=== PATIENT | female | born 1955 | race Caucasian/White ===

== ENCOUNTER 2017-03-13 08:26 | Emergency (ER) | payer OTHER ==
[~2017-03-13] VITALS: Ht 157.5 cm; Wt 86.3 kg
[2017-03-13 08:29] VITALS: BP 142/84; PULSE 56; RESP 17; O2SAT 100
[2017-03-13] MEDS ORDERED: 0.9% Sodium Chloride 500 ML IV ONE (09:03)
[2017-03-13] MEDS ORDERED: Ondansetron 2 mg/mL 2 mL Inj IVPUSH PRN ×2 (09:05→09:40)
[2017-03-13 09:22] LABS: BASOPHILS % (AUTO) 0.1 % (0-3); EOSINOPHILS % (AUTO) 0.4 % (0-5); MONOCYTES % (AUTO) 2.7 % (4-12); Mean Corpuscular Hemoglobin 27.2 pg (27.0-35.0); Mean Corpuscular Volume 81.4 fL (81-100); Platelet Count 216 bil/L (150-400)
--- NOTE | 2017-03-13 09:27 | ED.REPORT ---
HPI-Abd Pain F 40 and Over Date of Service Mar 13, 2017 ED Provider: Segundo Bryan MD Pt is a 62 year old female presenting to the ED complaining of abdominal and back pain onset last night. She states that she felt fine yesterday until she went to bed, then she couldn't find a comfortable position and had intense diffuse back pain. Her reports that they had chicken and beef tacos for dinner last night at 1730. Associated symptoms include vomiting throughout the night, fatigue, pain with inspiration, and increased urinary volume. Denies blood or green in the vomit, diarrhea, fever, constipation, dysuria, cough, congestion, or any other symptoms at this time. She denies any recent sick contacts. Nursing Notes Stated Complaint: POSSIBLE FOOD POISONING Chief Complaint: Female Abdominal Pain Nursing Notes Reviewed: Yes Allergies: Coded Allergies: No Known Allergies (Unverified , 03/13/17) Scheduled PRN Hydrocodone-Acetaminophen 5-325 mg (Hydrocodone-Acetaminophen 5-325 mg) 1 Each Tablet 1 TABLET PO Q4H PRN PRN For Pain Ondansetron ODT (Zofran ODT) 4 Mg Tablet 4 MG PO Q4H PRN PRN For Nausea General Time Seen by MD: 08:50 Chief Complaint Abdominal pain Hx Obtained From: Patient Arrived By: Walk-in Sudden in Onset?: Yes Onset Occurred: Yesterday Symptom Duration: Since onset Location: : Back: Diffuse: RUQ Quality: Painful Severity: Current: Severe Severity: Maximum: Severe Recent Healthcare: No recent doctor visit, No recent hospitalization Similar Sx Previous: No Past Medical History Past Medical History healthy Past Surgical History denies Denies: Appendectomy, , Cholecystectomy Smoking History Never Smoker Ambulatory Status Independent Review of Systems Constitutional: Reports: Fatigue, Denies: Fever Respiratory: Denies: Non-productive cough GI: Reports: Abdominal pain, Vomiting, Denies: Constipation, Diarrhea Female: Reports: Urination increased, Denies: Dysuria Musculoskeletal: Reports: Back pain Complete sys rev & neg: except as marked. Ears / Nose / Throat: Denies: Nasal congestion Physical Exam Vital Signs Vital Signs (First) Date Time Temp Pulse Resp B/P Pulse Ox O2 Delivery O2 Flow Rate FiO2 03/13/17 08:29 36.4 56 17 142/84 100 Room Air Initial VS: Reviewed Head / Eyes: Atraumatic, Normocephalic, PERRL Extremities: Vascular intact, Neuro intact, No swelling, No tenderness Skin: Warm, Dry, No cyanosis Neurologic: Alert, Oriented, Nonfocal Psychiatric: Mood/affect normal, Behavior normal, Normal thought content General/Constitutional: Awake, Alert, No acute distress, Well appearing Respiratory / Chest: Breath sounds NL, Breath sounds = bilat, No respiratory distress, No rales, No rhonchi, No wheezing, No stridor Cardiovascular: Heart rate NL, Regular rhythm, Heart sounds NL, No gallop, No murmurs, No rubs Abdomen: No guarding, No rebound Tenderness/Guarding/Rebound: Positive: Tender RUQ... (Moderate) Back: Atraumatic, No CVA tenderness Lower Extremity / Pelvis / MS: No deformity, Neurologic intact, Vascular intact , No edema Interpretation & Diagnostics Lab Results Interpretation Result Diagram: 03/13/17 0905 03/13/17 0905 Test 03/13/17 09:05 White Blood Count 10.4th/mm3 (3.8-10.1) Red Blood Count 5.37mil/mm3 (3.90-5.20) Hemoglobin 14.6g/dL (12.0-15.6) Hematocrit 43.7% (35.0-46.0) Mean Corpuscular Volume 81.4fL (81-100) Mean Corpuscular Hemoglobin 27.2pg (27.0-35.0) Mean Corpuscular Hemoglobin Concent 33.4% (32.0-37.0) Red Cell Distribution Width 13.6% (12.3-15.4) Platelet Count 216bil/L (150-400) Neutrophils (%) (Auto) 85.0% (40-74) Lymphocytes (%) (Auto) 11.6% (14-46) Monocytes (%) (Auto) 2.7% (4-12) Eosinophils (%) (Auto) 0.4% (0-5) Basophils (%) (Auto) 0.1% (0-3) Sodium Level 138mEq/L (134-144) Potassium Level 4.2mEq/L (3.5-5.2) Chloride Level 100mEq/L (97-108) Carbon Dioxide Level 20mmol/L (18-29) Blood Urea Nitrogen 15mg/dL (8-27) Creatinine 0.90mg/dL (0.57-1.00) Estimat Glomerular Filtration Rate 91mL/min (>59) Glucose Level 139mg/dL (60-99) Calcium Level 9.7mg/dL (8.5-10.1) Magnesium Level 1.8mg/dL (1.6-2.6) Total Bilirubin 0.5mg/dL (0.0-1.2) Aspartate Amino Transf (AST/SGOT) 22U/L (0-50) Alanine Aminotransferase (ALT/SGPT) 23U/L (0-32) Alkaline Phosphatase 78U/L (25-165) Total Protein 7.1g/dL (6.4-8.4) Albumin 4.3g/dL (3.4-5.0) Lipase 40U/L (13-60) Hold Dawkins Top Tube Received (Received) US Abdominal Aorta IMPRESSION: 1. Echogenic changes consistent with gallstones lodged in the neck of the gallbladder with tenderness over the gallbladder bed. Possible early acute cholecystitis. No pericholecystic fluid or wall thickening. 2. Diffuse infiltrative changes in the liver most likely fatty infiltration. Dictated by: Sotero Francis M.D. on 03/13/2017 at 12:35 Exam Performed by: Radiologist Exam Interpreted by: Radiologist Re-Eval/Medical Decision Med Decision/Clinical Course 62-year-old female with vomiting and right upper quadrant pain since last night after eating hamburger. Vital signs are stable. Abdomen stable. Right upper quadrant ultrasound shows cholelithiasis no cholecystitis. Common bile duct is within normal limits. No LFT elevation. No leukocytosis. Patient felt much better now be discharged home with pain medications and plans to follow up with general surgery. Return precautions given if any new or worsening abdominal pain nausea vomiting or any other new or worsening symptoms. Re-Evaluation/Progress : Time of Eval: 10:48 Patient Status: Condition improved Re-Evaluation/Progress Note: Discussed ultrasound results. Repeat abdominal exam: non tender. Discussed plan for discharge. Pt understands and agrees. Counseled Regarding: Diagnosis, Lab results, Need for follow-up, When/why to return to ED Discharge & Departure Primary Impression: Cholelithiasis Cholecystitis presence: without cholecystitis Biliary obstruction: without biliary obstruction Disposition: Home Discharge Condition All VS Reviewed: Yes Condition: Improved Patient Instructions: Gallstones (ED) Additional Instructions: Your ultrasound showed cholelithiasis which is a gall stone. Your gallbladder is not currently infected, but you will need to follow up with a surgeon to have your gallbladder removed. Follow up with your primary care doctor on Wednesday. Stay away from fatty foods which will exacerbate your pain. Stick to carbs, fruits and veggies. Return to the ER if you develop any new or worsening symptoms such as fever, abdominal pain or vomiting. Do not drive or drink alcohol while taking the pain medication. Referrals: Torres Pang MD (PCP) Iftikhar Attestation Portions of this note were transcribed by Beatriz Manuel. I, Dr. Bryan personally performed the history, physical exam and medical decision-making; I reviewed and confirmed the accuracy of the information in the transcribed note. Signed by: Iftikhar Hunt, 03/13/2017 at 1218. copies to: Torres Pang MD, Ben M MD Mar 13, 2017 09:27 BEATRIZ MANUEL Mar 13, 2017 09:34
[2017-03-13] MEDS ORDERED: 0.9% Sodium Chloride 1,000 ML IV ONE (09:36)
[2017-03-13 09:56] LABS: Magnesium 1.8 mg/dL (1.6-2.6)
[2017-03-13] MEDS ORDERED: ONDA4TAB9 PO (10:59)
[2017-03-13] MEDS ORDERED: HYDR-4003 PO (10:59)
[2017-03-13 11:11] VITALS: BP 116/70; PULSE 50; RESP 15; O2SAT 98
--- NOTE | 2017-03-13 12:39 | DRSVH ---
PROCEDURE: US ABDOMEN, LIMITED ([id number]) INDICATIONS: RUQ TECHNIQUE: Real-time focused scanning was performed of the abdomen, with image documentation. COMPARISON: None. FINDINGS: Liver is normal in size at 18 cm but there is diffuse echogenicity consistent with an infil trative process, fatty infiltration. There is relatively gallstones lodged in the neck of the gallbladder. Wall thickness is normal at 2.7 mm. There is tenderness over the gallbladder. Common bile duct measures 7 mm, upper normal. No gross abnormality of the pancreas is seen. Right kidney is grossly normal at 12 cm in length. Left kidney was not evaluated. Size of the proxima l mid and distal aorta is within normal limits. IMPRESSION: 1. Echogenic changes consistent with gallstones lodged in the neck of the gallbladder with tenderness over the gallbladder bed. Possible early acute cholecystitis. No pericholecystic fluid or wall thick ening. 2. Diffuse infiltrative changes in the liver most likely fatty infiltration. Dictated by: Sotero Francis M.D. on 03/13/2017 at 12:35 Approved by: Sotero Francis M.D. on 03/13/2017 at 12:37
== END 2017-03-13 11:05 | disposition home or self-care (01) ==
LOC: SED 08:26
DX: K80.20 Calculus of gallbladder without cholecystitis without obstruction (principal); R53.83 Other fatigue
CPT/HCPCS: 36415; 76705; 80053; 83690; 83735; 85025; 96361; 96374; 96375; 99285; J2270; J2405; J7030

== ENCOUNTER 2017-03-15 19:44 | Inpatient (IN) | payer OTHER ==
[~2017-03-15] VITALS: Ht 157.5 cm; Wt 89.6 kg
[~2017-03-15 19:44] MED LIST: HYDR-4003 PO; ONDA4TAB9 PO
[2017-03-15 19:47] VITALS: BP 151/86; PULSE 51; RESP 20; O2SAT 99
[2017-03-15 20:45] LABS: BASOPHILS % (AUTO) 0.1 % (0-3); EOSINOPHILS % (AUTO) 1.8 % (0-5); MONOCYTES % (AUTO) 6.4 % (4-12); Mean Corpuscular Hemoglobin 27.6 pg (27.0-35.0); Mean Corpuscular Volume 83.5 fL (81-100); NEUTROPHILS % (AUTO) 84.6 % (40-74); Platelet Count 190 bil/L (150-400)
--- NOTE | 2017-03-15 22:17 | ED.REPORT ---
HPI-Abd Pain F 40 and Over Date of Service Mar 15, 2017 ED Provider: Yuan Naqvi DO Pt is a 62 year old female with a history of HTN who presents to the ED complaining of worsening abdominal pain. She c/o associated pain radiating to her back, nausea, and "belching." She denies vomiting. Per the pt was diagnosed with cholelithiasis 2 days ago, and she is schedule for cholecystectomy for 03/18/17 at [facility]. The pt took 3 ibuprofen, hydrocodone, and anti-nausea medication throughout the day prior to arrival without relief. Nursing Notes Stated Complaint: PAIN W/ GALLSTONES Chief Complaint: Female Abdominal Pain Nursing Notes Reviewed: Yes Allergies: Coded Allergies: latex (Verified Allergy, Mild, 03/15/17) Scheduled Propranolol HCl (Propranolol HCl) 40 Mg Tablet 40 MG PO BID Scheduled PRN Frovatriptan Succinate (Frova) 2.5 Mg Tablet 2.5 MG PO DIRECTED PRN PRN For Headache Hydrocodone-Acetaminophen 5-325 mg (Hydrocodone-Acetaminophen 5-325 mg) 1 Each Tablet 1 TABLET PO Q4H PRN PRN For Pain Ibuprofen (Ibuprofen) 200 Mg Capsule 200 MG PO DIRECTED PRN PRN For Pain Ondansetron ODT (Zofran ODT) 4 Mg Tablet 4 MG PO Q4H PRN PRN For Nausea General Time Seen by MD: 22:17 Chief Complaint Abdominal pain Hx Obtained From: Patient Arrived By: Walk-in Sudden in Onset?: No Onset Occurred: 5 - 8 hours ago Symptom Duration: Since onset Location: : RLQ Quality: Painful Radiation: : Back Severity: Current: Moderate Severity: Maximum: Moderate Recent Healthcare: Recent doctor visit Similar Sx Previous: No Past Medical History Past Medical History Gallstones Reports: Hypertension Past Surgical History Tubal ligation Smoking History Never Smoker Social History Alcohol Use: In recovery Drug Use: Denies drug use Other Social History: Good social support Ambulatory Status Independent Review of Systems GI: Reports: Abdominal pain, Nausea, Denies: Vomiting Musculoskeletal: Reports: Back pain Complete sys rev & neg: except as marked. Physical Exam Vital Signs Vital Signs (First) Date Time Temp Pulse Resp B/P Pulse Ox O2 Delivery O2 Flow Rate FiO2 03/15/17 19:47 36.5 51 20 151/86 99 Room Air Initial VS: Reviewed Head / Eyes: Atraumatic, Normocephalic Neck: Supple, Full range of motion Extremities: Vascular intact, Neuro intact Skin: Warm, Dry, No cyanosis Neurologic: Alert, Oriented, Nonfocal Psychiatric: Mood/affect normal, Behavior normal General/Constitutional: Awake, Alert, Cooperative Respiratory / Chest: Atraumatic, Breath sounds NL, Breath sounds = bilat Cardiovascular: Heart rate NL, Regular rhythm, Heart sounds NL Abdomen: Atraumatic, Soft Tenderness/Guarding/Rebound: Positive: Tender RUQ... (Mild) Back: Atraumatic, Full range of motion Skin: Atraumatic, Color NL (non-jaundiced), Warm, Dry, Intact Interpretation & Diagnostics Lab Results Interpretation Result Diagram: 03/15/17203603/15/172036 Test 03/15/17 20:35 03/15/17 20:37 03/15/17 22:13 03/15/17 23:00 Acetaminophen Level < 15.0ug/mL Rx (10-25) White Blood Count 7.7th/mm3 (3.8-10.1) Red Blood Count 5.04mil/mm3 (3.90-5.20) Hemoglobin 13.9g/dL (12.0-15.6) Hematocrit 42.1% (35.0-46.0) Mean Corpuscular Volume 83.5fL (81-100) Mean Corpuscular Hemoglobin 27.6pg (27.0-35.0) Mean Corpuscular Hemoglobin Concent 33.0% (32.0-37.0) Red Cell Distribution Width 13.4% (12.3-15.4) Platelet Count 190bil/L (150-400) Neutrophils (%) (Auto) 84.6% (40-74) Lymphocytes (%) (Auto) 7.0% (14-46) Monocytes (%) (Auto) 6.4% (4-12) Eosinophils (%) (Auto) 1.8% (0-5) Basophils (%) (Auto) 0.1% (0-3) Sodium Level 136mEq/L (134-144) Potassium Level 4.3mEq/L (3.5-5.2) Chloride Level 98mEq/L (97-108) Carbon Dioxide Level 25mmol/L (18-29) Blood Urea Nitrogen 6mg/dL (8-27) Creatinine 0.77mg/dL (0.57-1.00) Estimat Glomerular Filtration Rate 108mL/min (>59) Glucose Level 125mg/dL (60-99) Calcium Level 9.4mg/dL (8.5-10.1) Magnesium Level 2.0mg/dL (1.6-2.6) Total Bilirubin 2.5mg/dL (0.0-1.2) Aspartate Amino Transf (AST/SGOT) 1218U/L (0-50) Alanine Aminotransferase (ALT/SGPT) 936U/L (0-32) Alkaline Phosphatase 159U/L (25-165) Total Protein 7.1g/dL (6.4-8.4) Albumin 3.8g/dL (3.4-5.0) Lipase 26U/L (13-60) Hold Dawkins Top Tube Received (Received) Urine Color Yellow (YELLOW) Urine Appearance Clear (CLEAR,HAZY) Urine pH 6.0 (5.0-8.0) Urine Specific [place] 1.004 (1.003-1.035) Urine Protein Negativemg/dL (NEG,TRACE) Urine Glucose (UA) Negativemg/dL (NEGATIVE) Urine Ketones Negativemg/dL (NEGATIVE) Urine Occult Blood Negative (NEGATIVE) Urine Nitrite Negative (NEGATIVE) Urine Bilirubin Negative (NEGATIVE) Urine Urobilinogen Normalmg/dL (NORMAL) Urine Leukocyte Esterase Small (NEGATIVE) Urine RBC 0-2/hpf (0-2) Urine WBC 6-10/hpf (0-5) Urine Epithelial Cells Occasional/hpf (NONE-MOD) Urine Crystals None seen (NONE SEEN) Urine Bacteria Few/hpf (NONE-FEW) Urine Hyaline Casts None/lpf (NONE) Urine Granular Casts None seen (NONE SEEN) Urine Waxy Casts None seen (NONE SEEN) Urine Red Blood Cell Casts None seen (NONE SEEN) Urine White Blood Cell Casts None seen (NONE SEEN) Urine Mucus None seen (None Seen) Urine Trichomonas None seen (NONE SEEN) Urine Yeast None (NONE SEEN) Urinalysis Comment None Urine Culture Reflexed Indicated Hold Urine Received (Received) Hold Purple Top Tube Received (Received) Prothrombin Time 10.0sec (8.1-12.5) Prothromb Time International Ratio 0.94ratio Hold Blue Top Tube Received (Received) Hold [place] Top Tube Received (Received) Re-Eval/Medical Decision Med Decision/Clinical Course Patient having ongoing pain with some tenderness. Laboratory work shows an obstructive hepatitis. She most likely has acute cholecystitis will need to have her gallbladder removed. I consulted with our general surgeon who concurs. She will be admitted to his service. Source of Hx: Old records Re-Evaluation/Progress : Time of Eval: 22:32 Re-Evaluation/Progress Note: Pt rechecked. Informed pt of plan for admission. Pt understands and agrees with plan for admission. All questions addressed. Consultation : Referral / Consult Name: Nick Jerry MD Call Returned at: 22:32 Counseled Regarding: Diagnosis, Lab results, Need for follow-up, When/why to return to ED Discharge & Departure Primary Impression: Acute cholecystitis Additional Impression: Obstructive cholestatic liver disease Disposition: ADMITTED TO HOSPITAL Discharge Condition All VS Reviewed: Yes Condition: Stable Referrals: Torres Pang MD (PCP) Scribe Attestation Portions of this note were transcribed by Ayala Carballo. I, Dr. Naqvi personally performed the history, physical exam and medical decision-making; I reviewed and confirmed the accuracy of the information in the transcribed note. Signed by : Iftikhar Traore, 03/15/17 and 23:40. copies to: Torres Pang MD, Todd P DO Mar 15, 2017 22:17 Ayala Willis Mar 15, 2017 22:26
[2017-03-15] MEDS ORDERED: 0.9% Sodium Chloride 1,000 ML IV ONE (22:25)
[2017-03-15] MEDS ORDERED: Ondansetron 2 mg/mL 2 mL Inj IVPUSH PRN ×2 (22:25→23:30)
[2017-03-15] MEDS ORDERED: HYDROmorphone 0.5 mg/0.5 mL iSecure Syringe IVPUSH PRN ×2 (22:25→23:30)
[2017-03-15] MEDS ORDERED: Piperacillin-Tazo 3.375 Gm Inj 3.375 GM in Dextrose 5% Minibag Plus 50 ML IV ONE (22:35)
[2017-03-15] MEDS ORDERED: Alum-Mag Hydrox-Simeth 30 mL Suspension PO PRN (23:30)
[2017-03-15 23:33] VITALS: BP 133/63; PULSE 51; RESP 18; O2SAT 97
[2017-03-15 23:43] LABS: INR 0.94 ratio
[2017-03-16] VITALS (10 sets, daily range): BP systolic 115–147; BP diastolic 55–81; PULSE 50–72; RESP 10–18; O2SAT 94–99
[2017-03-16 00:13] LABS: APPEARANCE,URINE CLEAR (CLEAR,HAZY); COLOR,URINE YELLOW (YELLOW); OCCULT BLOOD,URINE NEGATIVE (NEGATIVE); UROBILINOGEN,URINE NORMAL (NORMAL)
[2017-03-16] MEDS ORDERED: Piperacillin-Tazo 3.375 Gm Inj 3.375 GM in Dextrose 5% Minibag Plus 50 ML IV SCH ×2 (00:30→07:30)
[2017-03-16] MEDS ORDERED: PROP40TA5 PO (00:46)
[2017-03-16] MEDS ORDERED: FROV2.5T3 PO (00:46)
[2017-03-16] MEDS ORDERED: IBUP200C PO (00:46)
[2017-03-16] MEDS: Lactated Ringer's 1,000 ML IV SCH ×3 (01:12→16:41)
[2017-03-16] MEDS: Ondansetron 2 mg/mL 2 mL Inj IVPUSH PRN ×2 (02:44→08:49)
--- NOTE | 2017-03-16 04:03 | NUR ---
Admission Pt admitted to [facility] rm 1005 at 2345 from the ED. Pt here with cholecystitis. Pt is A/O,making needs known. C/O pain at 1/10 due to just receiving dilaudid in the ED. Pt states prior to that her pain was an 8/10. Pt is CPR. Able to transfer from [facility] and use BR then into bed with steady gait. Oriented PT to room, call light and TV controls. IV in right AC asymptomatic, started IV fluids. Pt is NPO for surgery in AM. Nausea being controlled with zofran. Care continues
[2017-03-16] MEDS ORDERED: CeFAZolin Inj 2 GM in IV Premix 1 EACH IV ONE ×2 (08:45→09:04)
--- NOTE | 2017-03-16 09:03 | DRSVH ---
PROCEDURE: US ABDOMEN INDICATIONS: evaluate GB TECHNIQUE: Real-time scanning was performed of the abdominal and retroperitoneal organs, with image documentatio n. COMPARISON: None. FINDINGS: Liver length: 18.92 cm Gallbladder Wall Thickness: 3.30 mm CHD: 6.70 mm CBD: 6.10 mm Spleen length: 8.04 cm Right kidney length: 11.68 cm Left kidney length: 10.97 cm Aorta(Proximal): 2.52 cm Aorta(Mid): 1.72 cm Aorta(Distal): 1.66 cm RCIA: 1.41 cm LCIA: 1.53 cm Liver: Liver is upper limits of normal in size and hyperechoic in echotexture. Gallbladder: Gallbladder contains dependent stones and sludge. Stones include a 2.3 cm immobile stone in the gallbladder neck, possibly impacted. Positive [place] sign reported by the technologist. Wall thickness is slightly above normal at 3.3 mm. This is nonspecific and could be secondary to liver dis ease or cholecystitis. Biliary ducts: Intrahepatic bile ducts are non-dilated. Extrahepatic bile duct caliber is at the up per limits of normal. No intraductal stone is demonstrated. Normal is 6-7 mm or less in diameter, or 10 mm or less post-cholecystectomy. Pancreas: Pancreas is obscured by bowel gas Spleen: Spleen is normal in size and homogeneous in echotexture. Kidneys: Kidneys are normal in size and echotexture. No hydronephrosis or nephrolithiasis. No [place] d masses. Aorta: Visualized aorta is normal in caliber at less than 3 cm. Iliacs: Proximal common iliac arteries are normal in caliber at less than 2.5 cm. IVC: Intrahepatic inferior vena cava is patent. Miscellaneous: No free abdominal fluid. IMPRESSION: 1. Cholelithiasis with probable impacted gallstone and possible acute cholecystitis. 2. Common bile duct is at the upper limits of normal at 6.7 mm, no intraductal stones demonstrated. 3. Borderline hepatomegaly with steatosis. Other etiologies of hyperechoic liver not excluded. 4. Pancreas is mostly obscured by bowel gas. Correlation with pancreatic enzymes recommended. Dictated by: Rob Lopez M.D. on 03/16/2017 at 8:54 Approved by: Rob Lopez M.D. on 03/16/2017 at 9:01
[2017-03-16] MEDS ORDERED: Lactated Ringer's 1,000 ML IV ONE ×2 (09:08→11:32)
--- NOTE | 2017-03-16 09:08 | PCM.HPANE ---
Patient Data Surgeon Admitting Provider:Nick Jerry MD Attending Provider:Nick Jerry MD Primary Care Physician:Torres Pang MD Other Provider:Hina Garcia Anesthesia Reason for Visit Cholecystitis,Obstructive Hepatitis Ht/WT & BMI Height (Feet): 5 Height (Inches): 2.00 Weight (Kilograms): 89.600 Body Mass Index 36.35 Allergies Coded Allergies: latex (Verified Allergy, Mild, 03/15/17) Past Anesthesia History Anesthesia History: Denies:: Abnormal Airway, Anesthesia Reactions, Difficult Intubation Diabetes History Hx Diabetes?: No MRSA MRSA: No Medications Active Scripts Ondansetron ODT (Zofran ODT)4 Mg Tablet4 Mg PO Q4H PRN For Nausea #10 TABLET Prov:Segundo Bryan MD 03/13/17 Hydrocodone-Acetaminophen 5-325 mg 1 Each Tablet1 Tablet PO Q4H PRN For Pain # 14 TABLET Prov:Segundo Bryan MD 03/13/17 Reported Medications Frovatriptan Succinate (Frova)2.5 Mg Tablet2.5 Mg PO DIRECTED PRN For Headache #1 TABLET 03/16/17 Propranolol HCl 40 Mg [id number] Mg PO BID #1 TABLET Ref 0 03/16/17 Ibuprofen 200 Mg [id number] Mg PO DIRECTED PRN For Pain #1 CAPSULE Ref 0 03/16/17 History History of ENT Problems?: Yes HEENT History: Positive for:: Sinus Problem Denies:: Abnormal Airway Cataracts Difficult Intubation Dysphagia Glaucoma Denture Type: None Teeth Condition: Within Normal Limits Hx of Heart Problems?: Yes Cardiovascular History: Positive for:: Hypertension Denies:: Atrial Fibrillation Cardiac Surgery Chest Pain Congestive Heart Failure Edema Heart Murmur Irregular Heartbeat Pacemaker Thrombophlebitis Valvular Heart Disease Hx of Respiratory Problem?: Yes Respiratory History: Positive for:: Pneumonia Denies:: Asthma COPD Chest Surgery Dyspnea Emphysema Hemoptysis Tuberculosis Hx Neurologic Problems?: Yes Neurological History: Positive for:: Headaches (migraines) Denies:: Alzheimer's Disease CVA Dementia Dizziness Parkinson's Disease Seizures Hx of GI Problems?: Yes Hx of Problems?: No Genitourinary History: Denies:: HX of Hemodialysis Kidney Stones Urinary Tract Infection HX of Peritoneal Dialysis: No Female Hx: Denies:: Currently Hx Musculoskeletal Problems?: Yes Musculoskeletal History: Denies:: Back Injury Joint Replacement Musculoskeletal Trauma Hx of Psycho/Social Problems?: No Hx Surgeries?: Yes Hx Any Other Health Problems?: Yes Other History: Positive for:: Hospitalization Denies:: Cancer Thyroid Disease History Blood Transfusions: Positive for:: Accept Blood Products? Denies:: Blood Transfusions Hx Diabetes: No Hx Alcohol Use: Yes (wine daily dinner)Hx Substance Use: No Smoking Status: Never Smoker Stop/Bang Treated for Sleep Apnea?: No Do You Have a CPAP Machine?: No S-Snoring: Do You Snore Loudly: Yes T-Tired: feel tired, fatigued: No O-Obsered: Observed not breath: No P-Blood Pressure: treated: Yes B- Body Mass Index > 35 kg/m2: No A- Age over 50: Yes N- Neck Large Circumference: No G- Gender Male: No BRIGHT Total Score: 2 Risk Assessment Category Category 1A: Patient has history of documented sleep apnea, and HAS NOT received any narcotic, sedative or anesthesia administration during this stay. Category 1B: Patient has history of documented sleep apnea, and HAS received any narcotic , sedative or anesthesia administration during this stay Category 2: Patient has SUSPECTED Obstructive Sleep Apnea, and HAS received any narcotic , sedative or anesthesia administration during this stay. Category 3: Patient has SUSPECTED Obstructive Sleep Apnea and HAS NOT received narcotic, sedative or anesthesia administration during this stay. Category 4: Outpatient in Procedural Areas with known sleep apnea or who screen positive for High Risk via the STOP/BANG questionnaire. Exam Exam General Appearance: Alert, Oriented X3, Cooperative, Mild Distress HEENT/AIRWAY: MP 2, Neck Movement (from), Mouth Opening (wnl) Lungs: Clear to Auscultation Heart: Exam Unremarkable Meds/Labs/Diagnostics Admission Meds Current Medications Sodium Chloride 1,000 ml @ 0 mls/hr Q0M ONCE IV Last administered on 22:59; Start 03/15/17 at 22:25; Stop 03/15/17 at 22:30; Status DC Piperacillin Sod/ Tazobactam Sod 3.375 gm/Dextrose/ Water 50 ml @ 100 mls/hr ONCE ONCE IV Last administered on 03/15/17 22:59; Start 03/15/17 at 22:35; Stop 03/15/17 at 23:04; Status DC Lactated Ringer's 1,000 ml @ 100 mls/hr Q10H IV Last administered on 01:12; Start 03/15/17 at 23:27 Piperacillin Sod/ Tazobactam Sod/ Dextrose/Water (Zosyn 3.375 Gm Inj/D5W Minibag Plus) 50 ml @ 12.5 mls/hr Q8 IV Last administered on 03/16/17 08:41; Start 03/16/17 at 07:30 Propranolol HCl (Inderal) 40 mg BID PO Last administered on 03/16/17 09:05; Start 03/16/17 at 08:40 Labs Test 03/15/17 20:35 03/15/17 20:37 03/15/17 22:13 03/15/17 23:00 Acetaminophen Level < 15.0ug/mL Rx (10-25) White Blood Count 7.7th/mm3 (3.8-10.1) Red Blood Count 5.04mil/mm3 (3.90-5.20) Hemoglobin 13.9g/dL (12.0-15.6) Hematocrit 42.1% (35.0-46.0) Mean Corpuscular Volume 83.5fL (81-100) Mean Corpuscular Hemoglobin 27.6pg (27.0-35.0) Mean Corpuscular Hemoglobin Concent 33.0% (32.0-37.0) Red Cell Distribution Width 13.4% (12.3-15.4) Platelet Count 190bil/L (150-400) Neutrophils (%) (Auto) 84.6% (40-74) Lymphocytes (%) (Auto) 7.0% (14-46) Monocytes (%) (Auto) 6.4% (4-12) Eosinophils (%) (Auto) 1.8% (0-5) Basophils (%) (Auto) 0.1% (0-3) Magnesium Level 2.0mg/dL (1.6-2.6) Lipase 26U/L (13-60) Hold Dawkins Top Tube Received (Received) Urine Color Yellow (YELLOW) Urine Appearance Clear (CLEAR,HAZY) Urine pH 6.0 (5.0-8.0) Urine Specific [place]le 1.004 (1.003-1.035) Urine Protein Negativemg/dL (NEG,TRACE) Urine Glucose (UA) Negativemg/dL (NEGATIVE) Urine Ketones Negativemg/dL (NEGATIVE) Urine Occult Blood Negative (NEGATIVE) Urine Nitrite Negative (NEGATIVE) Urine Bilirubin Negative (NEGATIVE) Urine Urobilinogen Normalmg/dL (NORMAL) Urine Leukocyte Esterase Small (NEGATIVE) Urine RBC 0-2/hpf (0-2) Urine WBC 6-10/hpf (0-5) Urine Epithelial Cells Occasional/hpf (NONE-MOD) Urine Crystals None seen (NONE SEEN) Urine Bacteria Few/hpf (NONE-FEW) Urine Hyaline Casts None/lpf (NONE) Urine Granular Casts None seen (NONE SEEN) Urine Waxy Casts None seen (NONE SEEN) Urine Red Blood Cell Casts None seen (NONE SEEN) Urine White Blood Cell Casts None seen (NONE SEEN) Urine Mucus None seen (None Seen) Urine Trichomonas None seen (NONE SEEN) Urine Yeast None (NONE SEEN) Urinalysis Comment None Urine Culture Reflexed Indicated Hold Urine Received (Received) Hold Purple Top Tube Received (Received) Prothrombin Time 10.0sec (8.1-12.5) Prothromb Time International Ratio 0.94ratio Hold Blue Top Tube Received (Received) Hold [place] Top Tube Received (Received) Test 03/16/17 04:50 Sodium Level 141mEq/L (134-144) Potassium Level 4.2mEq/L (3.5-5.2) Chloride Level 103mEq/L (97-108) Carbon Dioxide Level 25mmol/L (18-29) Blood Urea Nitrogen 6mg/dL (8-27) Creatinine 0.68mg/dL (0.57-1.00) Estimat Glomerular Filtration Rate 125mL/min (>59) Glucose Level 96mg/dL (60-99) Calcium Level 8.5mg/dL (8.5-10.1) Total Bilirubin 2.8mg/dL (0.0-1.2) Aspartate Amino Transf (AST/SGOT) 1470U/L (0-50) Alanine Aminotransferase (ALT/SGPT) 1287U/L (0-32) Alkaline Phosphatase 154U/L (25-165) Total Protein 5.5g/dL (6.4-8.4) Albumin 3.5g/dL (3.4-5.0) Plan Impression Patient chart reviewed, patient interviewed and anesthestic plan with risks, benefits, and alternatives discussed, and informed consent obtained. ASA Physical Status: ASA2 Mod Systemic Disease Anesthetic Plan: GA Bene/Risks/Altern/Consents: Yes HP Complete Prior to Induction: Yes Allan Rosas MD Mar 16, 2017 09:08
--- NOTE | 2017-03-16 10:51 | NUR ---
To OR Pt SL and leave to OR. Zosyn ran in over 30min OKd by Pharmacist and MD. Propranolol given this AM per . Abx to run sent with OR nurse to preop to be ran.
[2017-03-16] MEDS ORDERED: Bupivacaine-MPF 0.5% W/EPI 30 mL Inj INJ ONE (11:32)
[2017-03-16] MEDS ORDERED: Lactated Ringer's 500 ML IV PRN (11:49)
[2017-03-16] MEDS ORDERED: Lactated Ringer's 1,000 ML IV SCH (11:49)
[2017-03-16] MEDS ORDERED: HYDROmorphone 1 mg/mL Inj IVPUSH PRN (11:50)
[2017-03-16] MEDS ORDERED: Dexamethasone 4 mg/mL Inj IVPUSH PRN (11:50)
[2017-03-16] MEDS ORDERED: Labetalol 5 mg/mL 4 mL Inj IV PRN (11:50)
[2017-03-16] MEDS ORDERED: Ondansetron 2 mg/mL 2 mL Inj IVPUSH PRN (11:50)
[2017-03-16] MEDS ORDERED: hydrALAZINE 20 mg/mL Inj IVPUSH PRN (11:50)
[2017-03-16] MEDS ORDERED: EPHEDrine Sulfate 50 mg/mL Inj IVPUSH PRN (11:50)
[2017-03-16] MEDS ORDERED: Atropine 0.4 mg/mL Inj IVPUSH PRN (11:50)
[2017-03-16] MEDS ORDERED: fentaNYL-PF 50 mCg/mL 2 mL Inj IVPUSH PRN (11:50)
[2017-03-16] MEDS ORDERED: Phenylephrine 10,000 mCg/mL Inj IVPUSH PRN (11:50)
[2017-03-16] MEDS ORDERED: diphenhydrAMINE 25 mg Capsule PO PRN (13:15)
[2017-03-16] MEDS ORDERED: fentaNYL-PF 50 mCg/mL 2 mL Inj ONE (13:21)
[2017-03-16] MEDS ORDERED: Neostigmine 1 mg/mL 10 mL Inj ONE (13:21)
[2017-03-16] MEDS ORDERED: Ondansetron 2 mg/mL 2 mL Inj ONE (13:21)
[2017-03-16] MEDS ORDERED: Rocuronium 10 mg/mL 5 mL Inj ONE (13:21)
[2017-03-16] MEDS ORDERED: Dexamethasone 4 mg/mL Inj ONE (13:21)
[2017-03-16] MEDS ORDERED: Glycopyrrolate 0.2 MG/ML 1mL Inj ONE (13:21)
[2017-03-16] MEDS ORDERED: Propofol 10,000 mCg/mL 20 mL Inj ONE (13:21)
--- NOTE | 2017-03-16 13:25 | PCM.ANEP1 ---
Post Anesthesia PACU Phase 1 Assessment Anesthetic Administered: GA Level of Alertness: Awake, talking GUERRERO's with Equal Strength: Yes Pain: Yes Nausea or Vomiting: No CV Function & Hydration Stable: Yes Airway Device: Oxygen Delivery: Room Air Lungs: Clear to Auscultation PACU Phase 2 Assessment Complications: No Follow up Care: No Patient Instructions Provided: N/A Allan Rosas MD Mar 16, 2017 13:25
--- NOTE | 2017-03-16 13:27 | HP ---
[address] [address] HISTORY AND PHYSICAL PATIENT: CALVIN MONTAÑO : 1955 MR#: [id number] ADMIT: 03/15/2017 JOB ID: [id number] DATE IS SERVICE: 03/16/2017 CHIEF COMPLAINT/IDENTIFICATION: A 61-year-old woman thought to have symptomatic gallstones, admitted to General Surgery service last night. HISTORY OF PRESENT ILLNESS: The patient presented to emergency department over the last weekend with an episode of abdominal pain that improved and then recurred over the previous 24 hours. She had been scheduled for a laparoscopic cholecystectomy at the [facility] but came back to our emergency department last night after taking three ibuprofens, hydrocodone but no Tylenol. She denies jaundice, tea-colored urine or acholic stools. PAST MEDICAL HISTORY: Hypertension, on one drug. Status post tubal ligation. MEDICATIONS: Propranolol 40 mg p.o. b.i.d. ALLERGIES: Possible LATEX allergy. SOCIAL HISTORY: Lives with her . Negative tobacco, negative daily alcohol. FAMILY HISTORY: Noncontributory. REVIEW OF SYSTEMS: Positive for headaches for which she takes p.r.n. Frova. PHYSICAL EXAMINATION: BMI is 36. Vital signs recorded in the chart. They are within normal limits. She has been afebrile since admission. Her sclerae are clear. Neck is supple. Lungs are clear. Heart sounds are regular. Abdomen has mild right upper quadrant tenderness to deep palpation. Extremities are without edema. Neurologically, she is intact. LABORATORIES: Her admission white count was 7.7. Her hematocrit was 42. Chemistries were normal over the weekend, but on admission yesterday, her bilirubin was up to 2.5 and her AST and ALT were markedly elevated at 1218 and 936. She had normal alkaline phosphatase. Lipase is 26. Repeat labs this morning show a bilirubin of 2.8 and mild increase in her transaminases to 1470 and 1287. IMAGING: I repeated her abdominal ultrasound from the other day which demonstrated gallstone and this confirms that she has cholelithiasis with probable impacted gallstone, thickened gallbladder wall, though only mild at 3.3 mm, and there appears to be a small amount of pericholecystic fluid. She does have borderline hepatomegaly with steatosis based on a hyperechogenic liver and her common bile duct is at the upper limits of normal at 6.7 mm. IMPRESSION AND PLAN: Although her transaminases are somewhat higher than I would expect, I do believe that this is most likely due to her gallbladder. I have recommended laparoscopic cholecystectomy to her though we did discuss the option of obtaining a HIDA scan to confirm the diagnosis, though that would delay her surgical treatment. She would like to proceed and I think this is reasonable. We talked about risks, benefits, and possible complications including findings that her gallstone impacted in the gallbladder neck does not account for all of her problems. She would like to proceed today.
--- NOTE | 2017-03-16 14:50 | OP ---
[address] [address] OPERATIVE REPORT PATIENT: CALVIN MONTAÑO : 1955 MR#: [id number] ADMIT: 03/15/2017 JOB ID: [id number] DATE OF SURGERY: 03/16/2017 PREOPERATIVE DIAGNOSIS(ES): Acute cholecystitis. POSTOPERATIVE DIAGNOSIS(ES): Acute cholecystitis with choledocholithiasis. PROCEDURE: Laparoscopic cholecystectomy with cholangiogram. SURGEON: Dr. Nick Jerry. PREOPERATIVE DIAGNOSIS(ES): ASSISTANTS: Cruz Adhikari PA-C. INDICATIONS: A 61-year-old female who presents with acute cholecystitis and a mildly elevated bilirubin. FINDINGS: 1. assistant superintendent was medically necessary for safe and effective performance of the procedure including camera operation, retraction and suturing. 2. The patient had marked acute cholecystitis requiring a dome down cholecystectomy for safe completion of the procedure. 3. Cholangiogram demonstrates a normal anatomy with a long tortuous cystic duct and apparent distal common bile duct stone on the order of 6-7 mm. DESCRIPTION OF PROCEDURE: The patient brought to the operating room. SCOAP protocol was followed. General anesthetic was administered. Abdomen was prepped and draped in a sterile fashion. Surgical time-out was performed. She received perioperative Ancef. We began with a Veress needle. We placed four optical trocars in the standard fashion. The gallbladder was markedly inflamed. We retracted the gallbladder cephalad and peeled the greater omentum off of the gallbladder. The triangle of Calot was quite deep and the gallbladder was a bit intrahepatic. Inflammation was quite impressive and I elected to perform a dome down cholecystectomy for safety. I incised the peritoneal covering on the dome of the gallbladder. We retracted it cephalad and then began tedious and meticulous dissection staying right on the gallbladder. As we got down towards the fundus, we were careful not to get off the gallbladder and in fact entered the gallbladder. This allowed us to exteriorize the stone and put it aside and view the extent of the gallbladder from the inside. This facilitated further safe dissection staying right on the gallbladder until we got down to a cystic duct that seemed contracted towards the hepatoduodenal ligament. We did our cholangiogram right at the beginning of the cystic duct as I was concerned that we had a short cystic duct. The cholangiogram demonstrated, however, that we had a long tortuous cystic duct, normal intrahepatic anatomy and a mildly dilated common duct with what appeared to be a stone within a meniscus that was most consistent with a stone at the distal common duct. There was filling of the duodenum around the stone. Given all factors I felt that the patient would be best served by simply referring her for ERCP postoperatively rather than proceeding with any sort of a common duct exploration. We, therefore, placed multiple clips on the cystic duct after removing the cholangiocatheter, divided the cystic duct and this essentially freed up her gallbladder. We removed the gallbladder and the stone in a bag to avoid wound contamination, irrigated out the abdomen and suctioned out all of our irrigation. Hemostasis was good. There was no leakage of bile from the operative site. We placed a Ace-Taylor drain in the operative bed and brought it out through the right-sided port incision stab wound and then let our CO2 out and removed our ports. The mid-epigastric incision where we had removed the gallbladder was closed at the fascial level with 0 Vicryl, followed by subcuticular Monocryl for the skin closure. The patient tolerated the procedure well. After the procedure, I discussed the need for the referral for an ERCP with the patient's and have contacted Dr. Huynh of GI.
--- NOTE | 2017-03-16 14:50 | NUR ---
PACU Pt comes back from PACU A&Ox4, pain 4/10 tolerable. Denies CP, SOB, or nausea. 3 lap sites covered with gauze and bio-occlusive. C/D/I. BEST drain lower lateral right side. SS output. Pt stood and transferred from [facility] to bed well. Care continues.
[2017-03-16] MEDS: Piperacillin-Tazo 3.375 Gm Inj 3.375 GM in Dextrose 5% Minibag Plus 50 ML IV SCH (16:33)
--- NOTE | 2017-03-16 16:40 | DRSVH ---
PROCEDURE: X-RAY OPERATIVE CHOLANGIOGRAM ([id number]) INDICATIONS: CHOLANGIOGRAM COMPARISON: [facility], US, US ABDOMEN, 03/16/2017, 6:59. FINDINGS: Biliary ducts: The surgeon injected contrast into the biliary ducts after cannulation of the cystic duct stump. Visualized intra- and extrahepatic bile ducts are normal in caliber, without strictures. There is a small filling defect in the distal common bile duct at the ampulla Vater suspicious for a retained stone. No evidence for iatrogenic ductal injury. Duodenum: Contrast flows promptly through the sphincter of Oddi into the duodenum, which appears nor mal in caliber. IMPRESSION: 1. Small filling defect at the ampulla Vater suspicious for retained common duct stone. Dictated by: Carson Wing M.D. on 03/16/2017 at 16:37 Approved by: Carson Wing M.D. on 03/16/2017 at 16:38
--- NOTE | 2017-03-16 19:11 | NUR ---
BED Pt c/o about loudness in halls. Sign placed on door to keep closed. C/O beeping IV. Wrap placed on arm which helped this although pt c/o the wrap on arm. C/O [place]. Worked to get diet ordered prior to NPO midnight for tomorrow. Bed appears to not be working. Inent/hole in buttock area of bed. Pt aware but refuses to change bed as the next bed that works will vibrate and make noise unlike this one. Pt aware that this bed is broken but refuses to change beds. Understands the risks of sores or injury. Care continues.
--- NOTE | 2017-03-16 23:14 | CONS ---
[address] [address] CONSULTATION REPORT PATIENT: CALVIN MONTAÑO : 1955 MR#: [id number] ADMIT: 03/15/2017 JOB ID: [id number] DATE OF SERVICE: 03/16/2017 REQUESTING PROVIDER: Nick Jerry MD. REASON FOR CONSULTATION: Positive intraoperative cholangiogram. HISTORY OF PRESENT ILLNESS: This is a 62-year-old female who presented this past weekend with symptoms of abdominal pain. She had an ultrasound that was accomplished and revealed the presence of gallstones lodged in the neck of the gallbladder with tenderness over the gallbladder bed, though to be related to early acute cholecystitis, but there was no pericholecystic fluid or wall thickening. The common duct measured 7 mm at that time. The liver tests were completely normal. She was discharged and planned to obtain outpatient surgical consultation for laparoscopic cholecystectomy, only to have a return of symptoms which brought her back to the hospital tonight with further pain. This time around, she was found to have impressively abnormal liver chemistries and repeat ultrasound demonstrated a gallbladder that contained stones and sludge. There was a 2.3 cm immobile stone in the gallbladder neck that was thought to possibly be impacted and a positive Lagos's sign. Gallbladder wall was slightly thickened at 3.3 mm. The bilateral duct was described as at the upper limits normal with no intraductal stone. The patient had borderline hepatomegaly with steatosis. The patient was taken to the operating room today by Dr. Jerry, successful laparoscopic cholecystectomy was accomplished. Patient had impressive acute cholecystitis. She unfortunately had a stone 6 to 7 mm in diameter just above the level of the ampulla and it could not readily be cleared at the time of surgery. I saw the patient this evening and she was feeling great following her operation without any difficulty tolerating clear liquids. ALLERGIES: LATEX. MEDICATIONS: 1. The patient is currently receiving antibiotic in the hospital, specifically Zosyn. 2. She is otherwise taking propranolol at home. 3. Frova p.r.n. SOCIAL HISTORY: She is . No habits. FAMILY HISTORY: Noncontributory. REVIEW OF SYSTEMS: Reviewed. Otherwise, as per HPI. PHYSICAL EXAMINATION: The patient is alert, oriented, appropriate, cooperative, conversational. No distress. Abdomen is soft. Bowel sounds are hypoactive. No guarding at this time. She has serosanguineous fluid in her BEST. Lungs are clear. Heart: Regular. No significant peripheral pitting edema. She did have SCDs in situ bilaterally on lower extremities. LABORATORIES: White count was 7.7 last night, platelets 190, hematocrit 42.1. INR 0.94. Bilirubin was 2.5, today it is 2.8. AST went from around 1200 up to 1470. ALT was 936 yesterday and bumped up to 1287 today. Albumin is 3.5. Protein is 5.5. Lipase was normal at 26. Sodium 141, potassium 4.2, chloride 103, bicarb 25, BUN 6, creatinine 0.68, glucose 96, calcium 8.5. Tylenol level is negative. Urinalysis: She had a small leukocyte esterase positivity, was nitrite negative, 6-10 WBCs. IMAGING: As above. I personally reviewed the cholangiogram and agree that there does appear to be a small retained stone at the level of the ampulla. Good air entry. Unlabored breathing. Not tachycardic. No lower extremity edema. Abdomen is soft, nondistended. No guarding. ASSESSMENT AND RECOMMENDATIONS: This is a 62-year-old female with acute cholecystitis, treated successfully by way of laparoscopic cholecystectomy. Preoperatively, she had abnormal liver chemistries and at intraoperative cholangiogram was confirmed to have a stone well down at the level of the ampulla. The patient clinically feels great. She is aware that it is possible that a stone like this could pass on its own. She is quite hopeful that this may be the case and is not very enthusiastic about requiring a second procedure. That said, she does understand the rationale for a possible endoscopic retrograde cholangiopancreatography. I explained the procedure and some of the complications, including post ERCP pancreatitis in detail. I have requested some repeat labs in the morning. If liver chemistries are persistently elevated as they have been over the preceding 24 hours, the patient will be placed on the schedule for ERCP. On the other hand, if she has had a considerable drop in her liver chemistries, it would be reasonable to pursue an magnetic resonance cholangiopancreatography tomorrow morning to evaluate for spontaneous passage of the stone seen at [facility] and perhaps save the patient a procedure. The plan was explained to the patient in detail and she concurs. MTDD
[2017-03-17] VITALS (17 sets, daily range): BP systolic 104–170; BP diastolic 62–85; PULSE 38–51; RESP 13–18; O2SAT 94–100
[2017-03-17] MEDS: Piperacillin-Tazo 3.375 Gm Inj 3.375 GM in Dextrose 5% Minibag Plus 50 ML IV SCH ×3 (00:40→20:09)
[2017-03-17] MEDS: Lactated Ringer's 1,000 ML IV SCH ×2 (03:29→15:33)
--- NOTE | 2017-03-17 03:52 | NUR ---
Pain Patient's pain has been well managed this evening while receiving pain medication q4. Patient resting comfortably in bed much of shift. Vitals stable. A&OX3. Patient NPO since midnight. Care continues.
[2017-03-17 06:16] LABS: BASOPHILS % (AUTO) 0.1 % (0-3); EOSINOPHILS % (AUTO) 0.3 % (0-5); MONOCYTES % (AUTO) 5.5 % (4-12); Mean Corpuscular Hemoglobin 27.8 pg (27.0-35.0); Mean Corpuscular Volume 83.3 fL (81-100); NEUTROPHILS % (AUTO) 81.6 % (40-74); Platelet Count 199 bil/L (150-400)
[2017-03-17] MEDS ORDERED: Dexamethasone 4 mg/mL Inj ONE (09:25)
[2017-03-17] MEDS ORDERED: fentaNYL-PF 50 mCg/mL 2 mL Inj ONE (09:25)
[2017-03-17] MEDS ORDERED: Ondansetron 2 mg/mL 2 mL Inj ONE (09:25)
[2017-03-17] MEDS ORDERED: Propofol 10,000 mCg/mL 20 mL Inj ONE (09:25)
[2017-03-17] MEDS ORDERED: EPHEDrine/NS 5 mg/mL 5 mL Syringe ONE (09:25)
--- NOTE | 2017-03-17 09:36 | PCM.PNSURG ---
Subjective Date of Service: Mar 17, 2017 Date of Service: Mar 17, 2017 Visit Information: Reason for Visit Cholecystitis,Obstructive Hepatitis Surgery/Surgery Date LAP LIA AND GRAMS 03/16/17 Post-Op Day # 1 S/P Laparoscopic Cholecystectomy with Cholangiogram Date of Admission: Mar 15, 2017 at 23:16 Hospital Day # Subjective: The patient presents this a.m. with persistent biliary colicky pain and mild nausea without vomiting and tolerated a clear liquid diet with plans for nothing by mouth after midnight tonight. She had positive cholangiogram for stone obstruction in the common bile duct. She is voiding regularly and understands that she will undergo a ERCP after positive MRCP. She is however standing and independently ambulating in her room without significant pain. Postop General: Other Gastrointestinal: Good Appetite, Complains of Nausea (minor) Pain Management: Good Pain Control Objective Vital Sign- Last 8 Hours Date Time Temp Pulse Resp B/P Pulse Ox O2 Delivery O2 Flow Rate FiO2 03/17/17 05:17 36.8 51 18 121/78 97 Room Air Intake and Output- Last 8 Hour 03/17/17 Cumulative From/Thru 07:00 03/15/17 19:47 - 03/17/17 06:41 Intake Total 1902 ml 4108 ml Output Total 1020 ml 2435 ml Balance 882 ml 1673 ml Intake Oral 674 ml 674 ml IV Total 1228 ml 3434 ml Output Urine Total 970 ml 2220 ml Drainage Total 50 ml 140 ml Estimated Blood Loss 75 ml # Bowel Movements 0 0 General: Alert, Oriented X3, Cooperative, No Acute Distress Lungs: Clear to Auscultation Heart: Exam Unremarkable Abdomen: Soft, Appropriately tender, Non-distended SURGICAL WOUND : Wound General Appearence: Steri Strips, Intact, Well Approximated, No Erythema, No Discharge, No Inflammatory Changes Dressing & Drainage Status: Intact Wound Drainage Type: BEST Drain #1 (50 mL serosanguineous fluid) Extremities: Thigh&Calf Soft/Nontender Neuro: Normal Speech Result Diagram: 03/17/17 0540 03/17/17 0540 Assessment & Plan Impression This is a 62-year-old female postoperative day #1 status post laparoscopic cholecystectomy and positive cholangiogram for common bile duct instruction complaining of persistent biliary colicky pain and minor nausea with plans to undergo a ERCP after positive MRCP. Her total bili is 1.3 and AST/ALT is 711/ 1130. She is currently on a full liquid diets without nausea and is voiding without reported bowel movements or flatus. Her pain is appropriately controlled with her current analgesic regimen. We will continue to follow after GI procedure. Primary Diagnoses: 1. Acute cholecystitis 2. Status post laparoscopic cholecystectomy postoperative day # 1 with positive cholangiogram for common bile duct obstruction. 3. Choledocholithiasis with positive MRCP Other Medical and Surgical History Status post tubal ligation Hypertension Obesity Problems: Plan 1. The patient will undergo ERCP after positive MRCP today. 2. Nothing by mouth before ERCP procedure. 3. We will continue to follow after GI workup. 4. Continue standard general surgery postoperative care protocols including encouraged supervised ambulation. Cruz Adhikari PA-C Mar 17, 2017 09:36
--- NOTE | 2017-03-17 10:42 | DRSVH ---
PROCEDURE: MR ABDOMEN MRCP INDICATIONS: Possible retained CBD stone. Falling LFTs TECHNIQUE: Coronal HASTE through the abdomen, axial 2-D FLASH in- and [id number], and breath-hold T2 FSE with fat saturation through the biliary system and pancreas. Oblique coronal and axial thin-slice HASTE, radial thick-slab HASTE centered on the extrahepatic bile ducts. Intravenous secretin: Not requested. COMPARISON: [facility], CR, XR CHOLANGIOGRAM OPERATIVE, 03/16/2017, 12:42. FINDINGS: Image quality: Excellent. Pancreas and biliary system: There is mild intrahepatic and extrahepatic biliary ductal dilatation. W ithin the distal common bile duct, there is a 5 mm diameter low T2 intensity filling defect. Pancreas is normal in morphology, without adjacent soft tissue edema. Pancreatic duct is normal in caliber. Pancreas divisum is present. Gallbladder is surgically absent. Other solid organs: Liver and spleen are normal in size. No adrenal nodules. Both kidneys are norm al in size, without hydronephrosis. Nodes and vessels: No retroperitoneal or mesenteric adenopathy by size criteria. Aorta and inferior vena cava are normal in size. Bowel and peritoneum: Unenhanced bowel loops are normal in caliber. Small amount of postsurgical flu id within and adjacent to the gallbladder fossa is present. Lung bases: No basal pleural effusions. Heart size is normal. Bones and soft tissues: No ventral hernias. Bone marrow is of normal overall signal. IMPRESSION: 1. Choledocholithiasis. Mild biliary ductal dilatation. 2. Pancreas divisum. 3. Postsurgical sequelae following cholecystectomy. Dictated by: Kobi Kumar M.D. on 03/17/2017 at 10:23 Approved by: Kobi Kumar M.D. on 03/17/2017 at 10:40
[2017-03-17] MEDS ORDERED: Lactated Ringer's 1,000 ML IV ONE (14:36)
[2017-03-17] MEDS ORDERED: Phenylephrine 10,000 mCg/mL Inj IVPUSH PRN (17:00)
[2017-03-17] MEDS ORDERED: MetoCLOpramide 5 mg/mL 2 mL Inj IVPUSH PRN (17:00)
[2017-03-17] MEDS ORDERED: Ondansetron 2 mg/mL 2 mL Inj IVPUSH PRN (17:00)
[2017-03-17] MEDS ORDERED: EPHEDrine Sulfate 50 mg/mL Inj IVPUSH PRN (17:00)
[2017-03-17] MEDS ORDERED: Atropine 0.4 mg/mL Inj IVPUSH PRN (17:00)
[2017-03-17] MEDS ORDERED: Lactated Ringer's 1,000 ML IV SCH (17:00)
[2017-03-17] MEDS ORDERED: HYDROmorphone 1 mg/mL Inj IVPUSH PRN (17:00)
[2017-03-17] MEDS ORDERED: Lactated Ringer's 500 ML IV PRN (17:00)
[2017-03-17] MEDS ORDERED: Dexamethasone 4 mg/mL Inj IVPUSH PRN (17:00)
[2017-03-17] MEDS ORDERED: Labetalol 5 mg/mL 4 mL Inj IV PRN (17:00)
[2017-03-17] MEDS ORDERED: fentaNYL-PF 50 mCg/mL 2 mL Inj IVPUSH PRN (17:00)
--- NOTE | 2017-03-17 17:00 | PCM.HPANE ---
Patient Data Date of Service: Mar 17, 2017 Surgeon Admitting Provider:Nick Jerry MD Attending Provider:Nick Jerry MD Primary Care Physician:Torres Pang MD Other Provider:Hina Garcia Anesthesia Reason for Visit Cholecystitis,Obstructive Hepatitis CHOLECYSTITIS,OBSTRUCTIVE HEPATITIS Ht/WT & BMI Height (Feet): 5 Height (Inches): 2.00 Weight (Kilograms): 89.600 Body Mass Index 36.00 Allergies Coded Allergies: latex (Verified Allergy, Mild, 03/15/17) Past Anesthesia History Anesthesia History: Denies:: Abnormal Airway, Anesthesia Reactions, Difficult Intubation Diabetes History Hx Diabetes?: No MRSA MRSA: No Medications Home Meds Incl Beta Clarissa: Yes Date Beta Clarissa Taken: Mar 16, 2017 Active Scripts Ondansetron ODT (Zofran ODT)4 Mg Tablet4 Mg PO Q4H PRN For Nausea #10 TABLET Prov:Segundo Bryan MD 03/13/17 Hydrocodone-Acetaminophen 5-325 mg 1 Each Tablet1 Tablet PO Q4H PRN For Pain # 14 TABLET Prov:Segundo Bryan MD 03/13/17 Reported Medications Frovatriptan Succinate (Frova)2.5 Mg Tablet2.5 Mg PO DIRECTED PRN For Headache #1 TABLET 03/16/17 Propranolol HCl 40 Mg [id number] Mg PO BID #1 TABLET Ref 0 03/16/17 Ibuprofen 200 Mg [id number] Mg PO DIRECTED PRN For Pain #1 CAPSULE Ref 0 03/16/17 History History of ENT Problems?: Yes HEENT History: Positive for:: Sinus Problem Denies:: Abnormal Airway Cataracts Difficult Intubation Dysphagia Glaucoma Denture Type: None Teeth Condition: Within Normal Limits Hx of Heart Problems?: Yes Cardiovascular History: Positive for:: Hypertension Denies:: AICD Atrial Fibrillation Cardiac Surgery Chest Pain Congestive Heart Failure Edema Heart Murmur Irregular Heartbeat Pacemaker Thrombophlebitis Valvular Heart Disease Hx of Respiratory Problem?: Yes Respiratory History: Positive for:: Pneumonia Denies:: Asthma COPD Chest Surgery Dyspnea Emphysema Hemoptysis Tuberculosis Hx Neurologic Problems?: Yes Neurological History: Positive for:: Headaches (migraines) Denies:: Alzheimer's Disease CVA Dementia Dizziness Parkinson's Disease Seizures Hx of GI Problems?: Yes Hx of Problems?: No Genitourinary History: Denies:: HX of Hemodialysis Kidney Stones Urinary Tract Infection HX of Peritoneal Dialysis: No Female Hx: Denies:: Currently Hx Musculoskeletal Problems?: Yes Musculoskeletal History: Denies:: Back Injury Joint Replacement Musculoskeletal Trauma Hx of Psycho/Social Problems?: No Hx Surgeries?: Yes (RECENT LIA, ) Hx Any Other Health Problems?: Yes Other History: Positive for:: Hospitalization Denies:: Cancer Thyroid Disease History Blood Transfusions: Positive for:: Accept Blood Products? Denies:: Blood Transfusions Hx Diabetes: No Hx Alcohol Use: Yes (wine daily dinner)Hx Substance Use: No Smoking Status: Never Smoker Stop/Bang Treated for Sleep Apnea?: No Do You Have a CPAP Machine?: No S-Snoring: Do You Snore Loudly: Yes T-Tired: feel tired, fatigued: No O-Obsered: Observed not breath: No P-Blood Pressure: treated: Yes B- Body Mass Index > 35 kg/m2: No A- Age over 50: Yes N- Neck Large Circumference: No G- Gender Male: No BRIGHT Total Score: 3 Risk Assessment Category Category 1A: Patient has history of documented sleep apnea, and HAS NOT received any narcotic, sedative or anesthesia administration during this stay. Category 1B: Patient has history of documented sleep apnea, and HAS received any narcotic , sedative or anesthesia administration during this stay Category 2: Patient has SUSPECTED Obstructive Sleep Apnea, and HAS received any narcotic , sedative or anesthesia administration during this stay. Category 3: Patient has SUSPECTED Obstructive Sleep Apnea and HAS NOT received narcotic, sedative or anesthesia administration during this stay. Category 4: Outpatient in Procedural Areas with known sleep apnea or who screen positive for High Risk via the STOP/BANG questionnaire. Exam Exam Vital Signs Vital Signs Date Time Temp Pulse Resp B/P Pulse Ox O2 Delivery O2 Flow Rate FiO2 03/17/17 16:00 37.4 49 15 135/81 98 Room Air 03/17/17 15:56 50 15 135/81 98 Room Air 03/17/17 12:24 36.7 42 18 140/81 99 Room Air General Appearance: Alert, Oriented X3, Cooperative, No Acute Distress HEENT/AIRWAY: MP 2, Neck Movement (from), Mouth Opening (wnl) Lungs: Clear to Auscultation Heart: Exam Unremarkable Meds/Labs/Diagnostics Labs Test 03/15/17 20:35 03/15/17 20:37 03/15/17 22:13 03/15/17 23:00 Acetaminophen Level < 15.0ug/mL Rx (10-25) Magnesium Level 2.0mg/dL (1.6-2.6) Lipase 26U/L (13-60) Hold Dawkins Top Tube Received (Received) Urine Color Yellow (YELLOW) Urine Appearance Clear (CLEAR,HAZY) Urine pH 6.0 (5.0-8.0) Urine Specific [place] 1.004 (1.003-1.035) Urine Protein Negativemg/dL (NEG,TRACE) Urine Glucose (UA) Negativemg/dL (NEGATIVE) Urine Ketones Negativemg/dL (NEGATIVE) Urine Occult Blood Negative (NEGATIVE) Urine Nitrite Negative (NEGATIVE) Urine Bilirubin Negative (NEGATIVE) Urine Urobilinogen Normalmg/dL (NORMAL) Urine Leukocyte Esterase Small (NEGATIVE) Urine RBC 0-2/hpf (0-2) Urine WBC 6-10/hpf (0-5) Urine Epithelial Cells Occasional/hpf (NONE-MOD) Urine Crystals None seen (NONE SEEN) Urine Bacteria Few/hpf (NONE-FEW) Urine Hyaline Casts None/lpf (NONE) Urine Granular Casts None seen (NONE SEEN) Urine Waxy Casts None seen (NONE SEEN) Urine Red Blood Cell Casts None seen (NONE SEEN) Urine White Blood Cell Casts None seen (NONE SEEN) Urine Mucus None seen (None Seen) Urine Trichomonas None seen (NONE SEEN) Urine Yeast None (NONE SEEN) Urinalysis Comment None Urine Culture Reflexed Indicated Hold Urine Received (Received) Hold Purple Top Tube Received (Received) Prothrombin Time 10.0sec (8.1-12.5) Prothromb Time International Ratio 0.94ratio Hold Blue Top Tube Received (Received) Hold Morrow Top Tube Received (Received) Test 03/17/17 05:40 White Blood Count 9.1th/mm3 (3.8-10.1) Red Blood Count 4.60mil/mm3 (3.90-5.20) Hemoglobin 12.8g/dL (12.0-15.6) Hematocrit 38.3% (35.0-46.0) Mean Corpuscular Volume 83.3fL (81-100) Mean Corpuscular Hemoglobin 27.8pg (27.0-35.0) Mean Corpuscular Hemoglobin Concent 33.4% (32.0-37.0) Red Cell Distribution Width 13.6% (12.3-15.4) Platelet Count 199bil/L (150-400) Neutrophils (%) (Auto) 81.6% (40-74) Lymphocytes (%) (Auto) 12.4% (14-46) Monocytes (%) (Auto) 5.5% (4-12) Eosinophils (%) (Auto) 0.3% (0-5) Basophils (%) (Auto) 0.1% (0-3) Sodium Level 141mEq/L (134-144) Potassium Level 4.6mEq/L (3.5-5.2) Chloride Level 101mEq/L (97-108) Carbon Dioxide Level 27mmol/L (18-29) Blood Urea Nitrogen 10mg/dL (8-27) Creatinine 0.92mg/dL (0.57-1.00) Estimat Glomerular Filtration Rate 88mL/min (>59) Glucose Level 112mg/dL (60-99) Calcium Level 9.1mg/dL (8.5-10.1) Total Bilirubin 1.3mg/dL (0.0-1.2) Aspartate Amino Transf (AST/SGOT) 711U/L (0-50) Alanine Aminotransferase (ALT/SGPT) 1130U/L (0-32) Alkaline Phosphatase 165U/L (25-165) Total Protein 5.8g/dL (6.4-8.4) Albumin 3.5g/dL (3.4-5.0) Plan Impression Patient chart reviewed, patient interviewed and anesthestic plan with risks, benefits, and alternatives discussed, and informed consent obtained. NPO per Anesth. Guidelines: Yes ASA Physical Status: ASA2 Mod Systemic Disease Anesthetic Plan: GA Bene/Risks/Altern/Consents: Yes HP Complete Prior to Induction: Yes Jarek Hairston MD Mar 17, 2017 17:00
--- NOTE | 2017-03-17 17:57 | PCM.ANEP1 ---
Post Anesthesia PACU Phase 1 Assessment Date of Service: Mar 17, 2017 Vital Signs Vital Signs Date Time Temp Pulse Resp B/P Pulse Ox O2 Delivery O2 Flow Rate FiO2 03/17/17 16:00 37.4 49 15 135/81 98 Room Air 03/17/17 15:56 50 15 135/81 98 Room Air 03/17/17 12:24 36.7 42 18 140/81 99 Room Air Anesthetic Administered: GA Level of Alertness: Sleepy, easy to arouse GUERRERO's with Equal Strength: Yes Pain: No Nausea or Vomiting: No CV Function & Hydration Stable: Yes Airway Device: Oxygen Delivery: Simple Mask Lungs: Clear to Auscultation Dermatome Level: Full Sensation PACU Phase 2 Assessment Complications: No Follow up Care: N/A Patient Instructions Provided: N/A Jarek Hairston MD Mar 17, 2017 17:57
--- NOTE | 2017-03-17 18:30 | NUR ---
Pain Patient states pain to abdomen well controlled with ordered pain medications this shift. Patient denies nausea, vomiting or other difficulty. Care is ongoing.
--- NOTE | 2017-03-17 18:48 | ENDO ---
[address] [address] ENDOSCOPY PROCEDURE PATIENT: CALVIN MONTAÑO : 1955 MR#: [id number] ADMIT: 03/15/2017 JOB ID: [id number] DATE OF SERVICE: 03/17/2017 PRIMARY PROVIDER: Torres Pang MD. PROCEDURE: Endoscopic retrograde cholangiopancreatography with biliary sphincterotomy and stone extraction. INDICATIONS: A 62-year-old female who presented with biliary symptoms. At laparoscopic cholecystectomy, she was found to have a positive IOC. The next day, she was feeling great. Liver tests were falling but MRCP demonstrated persistent filling defect within the CBD. EQUIPMENT: [email or web address] Q180 V. SEDATION: General anesthesia as provided by Dr. Jarek Hairston. The patient additionally received 100 mg indomethacin suppository during the case to prophylax against post ERCP pancreatitis. PROCEDURE INFORMATION: After the risks and benefits were explained, written and verbal informed consent was obtained. The patient was brought into the endoscopy suite and placed into the prone position following anesthesia and intubation. The scope was introduced into the mouth through the bite block and advanced under indirect visualization to stomach. From there, under direct visualization the scope was guided into the second portion of the duodenum. The major papilla was identified and did appear to be emanating a conrad bile intermittently. With a 20 mm Olympus sphincterotome preloaded with an 0.25 straight short Visiglide wire, we obtained deep intrahepatic wire access. Initial cholangiogram confirmed the biliary tree. It was difficult initially to identify anatomy in the distal duct, but based on the MRCP which was clearly positive for retained stone, we pursued biliary sphincterotomy. This appeared to be quite adequate. I then swapped out the sphincterotome for an 8.5 mm bilo balloon contrast port stone extraction catheter. This was introduced into the duct, and we swept through the sphincterotomy. The balloon easily came through, but we did not dislodge a stone. We swept the balloon through a second time and it temporarily got lodged at the level of the ampulla. We did not initially see this stone that had been engaged in the balloon. I deflated the balloon. It came through, but the stone remained in the duct. We then swept the duct a 3rd time and dislodged the stone that was probably somewhere in the 6 mm range. In terms of maximum size. We then swept the duct several more times, and the balloon easily came through the sphincterotomy. There was a very minimal amount of self-limited heme present after the stone had been removed. No sustained bleeding. The BEST drain was seen during our imaging, but I did not identify any evidence of a leak at this time. With the stone removed and the sphincterotomy draining, we elected to terminate the procedure. The catheter and wire were retrieved. The scope was then brought back into the stomach. Excess air and fluid was removed. The scope was then withdrawn from the patient who seemed to tolerate the procedure well. She was extubated and then transferred to the PACU in stable condition. FINDINGS: As above. Morphologically, the major papilla appeared normal. There was bile emanating at the outset of our procedure. We purposely avoided the pancreatic duct, and it did not receive a wire nor any contrast during our procedure. Biliary access was obtained. The biliary sphincterotomy was performed over the wire and quite adequate. The stone seen at MRCP was delivered into the duodenum. Further sweeps of the duct yielded no other debris. ENDOSCOPIC DIAGNOSES: Choledocholithiasis status post biliary sphincterotomy and stone extraction. RECOMMENDATIONS: The patient is to. 1. Remain n.p.o. for the next 5 hours and on IV fluids. 2. Clear liquids can then be started in around 5 hours. 3. The patient's diet can be advanced as tolerated tomorrow morning. 4. Repeat blood work will be arranged for in the morning. As long as she remains clinically stable following ERCP, I see no reason from a GI standpoint that she cannot be discharged home as early as tomorrow morning. 5. BEST removal at the discretion of her primary surgical service.
--- NOTE | 2017-03-17 19:43 | DRSVH ---
PROCEDURE: X-RAY E.R.C. BILIARY DUCTS ([id number]) INDICATIONS: ABNORMAL LIVER FUNCTION TEST TECHNIQUE: Fluoroscopic spot films, x2, were acquired by the gastroenterology service during ERCP pr oceduabel. COMPARISON: None. FINDINGS: The first film of 2 shows a wire and balloon in the common bile duct with contrast injected . A second film shows the balloon to be collapsed filling defect just peripheral in the common hepati c duct to the balloon catheters thought to be present. IMPRESSION: Probable filling defect just peripheral to the balloon catheter the second film of the en doscopy procedure. Dictated by: Sotero Francis M.D. on 03/17/2017 at 19:40 Approved by: Sotero Francis M.D. on 03/17/2017 at 19:41
--- NOTE | 2017-03-17 19:44 | NUR ---
Post op Patient arrived to floor at 1935. Patient A&OX3. 2L O2. Report given by Tamera. Patient states she is not having any pain. sitting in chair by bedside. Patient had a BM immediately upon return to room.
[2017-03-18 00:45] VITALS: BP 152/83; PULSE 43; RESP 16; O2SAT 94
[2017-03-18] MEDS: Piperacillin-Tazo 3.375 Gm Inj 3.375 GM in Dextrose 5% Minibag Plus 50 ML IV SCH ×3 (04:39→20:27)
[2017-03-18 04:44] VITALS: BP 153/77; PULSE 44; RESP 18; O2SAT 96
--- NOTE | 2017-03-18 05:35 | NUR ---
Appetite Patient states she is excited for breakfast and is starting off with some jello. So far patient is tolerating food well without any nausea. Patient states she is still not having any pain. Patient A&OX3. Vitals stable. Drinking fluids and tolerating it well since 2300 last night. Care continues.
[2017-03-18 05:39] LABS: Mean Corpuscular Hemoglobin 27.6 pg (27.0-35.0)
--- NOTE | 2017-03-18 08:22 | NUR ---
Social Work: Brief Note Data: Pt is a 62 y/o female admitted for cholecystitis,obstructive hepatitis. Pt's PCP is Dr Pang. EMR reviewed. Readmit score is 0, low. Pt is from home with her spouse in [place]. No d/c planning needs identified at this time. INFECTION CONTROL PRACTITIONER will continue to follow if needs arise. Assessment: Pt who is independent at baseline. Plan: Pt will d/c home via POV when medically stable. No d/c planning needs identified at this time. INFECTION CONTROL PRACTITIONER will continue to follow if needs arise. LEATHA Corral
[2017-03-18 08:26] VITALS: BP 164/84; PULSE 43; RESP 16; O2SAT 96
--- NOTE | 2017-03-18 08:32 | PCM.PNSURG ---
Subjective Date of Service: Mar 18, 2017 Date of Service: Mar 18, 2017 Visit Information: Reason for Visit Cholecystitis,Obstructive Hepatitis Surgery/Surgery Date LAP LIA AND GRAMS 03/16/17 Post-Op Day # 3 Laparoscopic cholecystectomy with + cholangiogram & ERCP completed yesterday Date of Admission: Mar 15, 2017 at 23:16 Hospital Day # Subjective: ERCP went well yesterday. Now feeling better. No significant pain, nausea, vomiting, or bowel movements. She is passing gas, hungry, ambulating independently, and voiding without difficulty. Postop General: No Complaints Gastrointestinal: Good Appetite, No N/V, Passing Flatus Pain Management: Good Pain Control Postop Activity: Ambulating Independently Objective Vital Sign- Last 8 Hours Date Time Temp Pulse Resp B/P Pulse Ox O2 Delivery O2 Flow Rate FiO2 03/18/17 04:44 36.6 44 18 153/77 96 Room Air 03/18/17 00:45 36.5 43 16 152/83 94 Room Air Intake and Output- Last 8 Hour 03/18/17 Cumulative From/Thru 07:00 03/15/17 19:47 - 03/17/17 20:34 Intake Total 4708 ml Output Total 3330 ml Balance 1378 ml Intake Oral 674 ml IV Total 4034 ml Output Urine Total 3020 ml Drainage Total 235 ml Estimated Blood Loss 75 ml # Bowel Movements 0 General: Alert, Oriented X3, Cooperative, No Acute Distress Lungs: Clear to Auscultation Heart: Exam Unremarkable Abdomen: Soft, Appropriately tender, Non-distended SURGICAL WOUND : Wound General Appearence: Steri Strips, Intact, Well Approximated, No Erythema, No Discharge, No Inflammatory Changes Dressing & Drainage Status: Dressing Removed Wound Drainage Type: BEST Drain #1 (minimal serosanguineous output of 30 mL last shift) Extremities: Thigh&Calf Soft/Nontender Neuro: Normal Speech Result Diagram: 03/18/17 0500 03/18/17 0500 Assessment & Plan Impression This is a 62-year-old female postoperative day #2 status post laparoscopic cholecystectomy with positive cholangiogram having undergone a ERCP yesterday without complication. Patient is otherwise doing well tolerating clear liquids with no significant pain, nausea, vomiting, or bowel movements. Her pain is improved and appropriately controlled with her current analgesic regimen and she has flatus. Her wounds look good, abdomen is appropriately tender and drain output is minimal serosanguineous drainage. She has a positive urinalysis for Citrobacter but is on sensitive antibiotics. Her white blood cell count this a.m. was 7.3 and bilirubin this morning was 1.2. However her AST /ALT are 624/1041. OnCall Dr. Souza recommended advance her diet to general as tolerated, hold drain and repeat LFT's tomorrow with possible discharge home pending further evaluation with Augmentin which was also sensitive for her UTI. Primary Diagnoses: 1. Acute cholecystitis 2. Status post laparoscopic cholecystectomy postoperative day # 2 with positive cholangiogram & ERCP completed yesterday 3. Choledocholithiasis with positive MRCP 4. UTI Other Medical and Surgical History Status post tubal ligation Hypertension Obesity Problems: Plan 1. Advance to general diet as tolerated. 2. Repeat tomorrow a.m. labs. 3. Hold BEST drain today. 4. Continue standard general surgery postoperative care protocols including encouraged supervised ambulation. 5. Possible discharge home tomorrow after reevaluation with PO Augmentin for GI and UTI. Cruz Adhikari PA-C Mar 18, 2017 08:32
--- NOTE | 2017-03-18 11:15 | NUR ---
Social Work: Readiness for Discharge/Ortho/Surgery Update D: EMR reviewed. Pt is on day 3 of hospitalization. Pt is a surgery pt. Per ortho, pt is medically stable and will discharge today - no SW needs identified - no MD orders received for discharge planning. Per ortho, ERCP went well yesterday and pt is feeling better. No significant pain, nausea, vomiting, or bowel movements. Pt is passing gas, hungry, ambulating independently, and voiding without difficulty. Pt to discharge via POV home, no discharge needs identified. SW will continue to follow. A: Pt who is independent at baseline. P: Pt to discharge via POV home, no discharge needs identified. SW will continue to follow. LEATHA Cuellar
[2017-03-18 12:00] VITALS: BP 159/82; PULSE 50; RESP 18; O2SAT 96
--- NOTE | 2017-03-18 14:35 | PATH ---
SURGICAL PATHOLOGY Attending Physician:Nick Jerry MD CASE STATUS: Signed Out PATIENT NAME: CALVIN MONTAÑO PID: [id number] : 1955 DATE COLLECTED:03/16/2017 00:00 SPECIMEN: Gallbladder CLINICAL HISTORY: CHOLECYSTITIS, OBSTRUCTION, HEPATITIS 1). GALLBLADDER FINAL DIAGNOSIS: Gallbladder, Laparoscopic Cholecystectomy: Acute and chronic cholecystitis and cholelithiasis. ICD10: K81.2 GROSS DESCRIPTION: The specimen is received in one formalin filled container labeled with the patient's name, sublabeled "gallbladder" and consists of an opened 9.0 x 4.0 x 1.5 CM gallbladder. The cystic duct is possibly not identified. The serosa is smooth. The wall is 0.2-0.6 CM in thickness. The mucosal is a dark red-brown in color. The lumen contains clotted blood and 2 green calculi which range in size from 0.6 to 4.0 CM in greatest dimension. 5 sales solutions representative sections are submitted in one cassette. 03/17/2017DC ICD-9 CODES: CPT CODES: 1: 66944 Electronically Signed Out Hilaria Tatum MD [facility] [address], [place] [address] Technical component performed at [facility], [address], [place], [address]
[2017-03-18 17:45] VITALS: BP 129/80; PULSE 65; RESP 17; O2SAT 96
--- NOTE | 2017-03-18 17:54 | NUR ---
POST-OP PROGRESS Patient denies pain. She complained of nausea this morning prior to breakfast. Zofran PO administered. No further complaints of nausea voiced. No emesis noted. Denies SOB. Patient has been ambulating independently in the hallway. Dressing is CDI. BEST is intact draining to sero-sanguineous output. Voiding without any problems. + BM this shift.
[2017-03-18 19:45] VITALS: BP 109/71; PULSE 71; RESP 17; O2SAT 96
[2017-03-18] MEDS: Ondansetron 2 mg/mL 2 mL Inj IVPUSH PRN (20:33)
--- NOTE | 2017-03-18 21:52 | PCM.PNMED ---
Subjective Date of Service Mar 18, 2017 Subjective 62-year-old woman day 1 status post ERCP and day 2 status post cholecystectomy. Patient is doing well today she is tolerating oral intake, she had a meal early afternoon without nausea or vomiting. She is having some mild abdominal discomfort without acute pain. She denies fever, chills, night sweats, chest pain, dysuria and shortness of breath. Exam Vital Signs Vital Sign - Last Date Time Temp Pulse Resp B/P Pulse Ox O2 Delivery O2 Flow Rate FiO2 03/18/17 19:45 36.9 71 17 109/71 96 Room Air 03/17/17 19:20 2 Intake and Output 03/17/17 03/17/17 03/18/17 Cumulative From/Thru 15:00 23:00 07:00 03/15/17 19:47 - 03/17/17 20:34 Intake Total 600 ml 4708 ml Output Total 895 ml 3330 ml Balance -295 ml 1378 ml Intake Oral 0 ml 674 ml IV Total 600 ml 4034 ml Output Urine Total 800 ml 3020 ml Drainage Total 95 ml 235 ml Estimated Blood Loss 75 ml # Bowel Movements 0 Exam General: No acute distress, well-developed, well-nourished, appropriately interactive HEENT: Normocephalic, atraumatic. External ears without defect. Pupils equal, round, and reactive to light. Oropharynx free of erythema moist mucosa. Neck: Supple with full range of motion. No lymphadenopathy or thyromegaly. Cardiovascular: Regular rate and rhythm with no murmurs, rubs, or gallops appreciated Pulmonary: Clear to auscultation bilaterally with no crackles, wheezes, or rhonchi. Normal respiratory effort with no use of accessory muscles. Abdomen: Bowel tones present. Soft, appropriately, mildly distended. No hepatosplenomegaly or masses appreciated. Extremities: No clubbing, cyanosis, edema, or lymphadenopathy appreciated. Skin: Normal temperature, turgor, and texture; no rash, ulcers, or subcutaneous nodules appreciated. Neurological: Cranial nerves grossly intact. No known gait impairment. Psychiatric: Normal mood and affect. Alert and oriented to person, place, and time. Lab and Diagnostics Liver enzymes continued to downtrend without significant change from yesterday. AST is 624, a LT 1041, alkaline phosphatase 198. Bilirubin normal at 1.2 Result Diagram: 03/18/17 0500 03/18/17 0500 Microbiology Urine culture shows pansensitive Citrobacter Koseri which is normal derek of the digestive tract, she has 6-10 white blood cells, and no urinary symptoms Assessment & Plan 62-year-old woman day 1 status post ERCP and day 2 status post cholecystectomy. Patient continues to have downtrending yet elevated liver enzymes. Patient tolerating oral intake 1. Repeat blood work will be arranged for in the morning. 2. BEST removal at the discretion of her primary surgical service. As long as patient remains clinically stable, from a GI standpoint that she can be discharged home tomorrow morning. VTE Mechanical Devices: Intermittant Pneumatic CD Attending Statement Patient seen and examined. Agree with assessment and plan as described by Dr Muñoz. copies to: Dave Huynh MD, Erika R DO Mar 18, 2017 21:52 Dave Huynh MD Mar 18, 2017 22:37
[2017-03-19] MEDS: Ondansetron 2 mg/mL 2 mL Inj IVPUSH PRN (00:55)
--- NOTE | 2017-03-19 02:03 | NUR ---
Headache Patient c/o headache at beginning of shift after walking around unit with , rating it about a 6/10. Oxycodone 5mg PO given in addition to cold compress. Upon reassessment, patient noted to be resting with eyes closed. Around 0030, patient tearful and rating BOLTON a 10/10. Oxycodone 5mg PO given again with Zofran 4mg IVP. Patient had approx. 100 ml of emesis about a half hour after receiving medications. Patient states headache is now about a 7/10 and is "tolerable". States she no longer feels nauseous, but "it could come back at any time." Page sent out to Dr. Souza. Awaiting response. Addendum: 03/19/17 at 0601 by POLLO SWIFT RN Still no response from MD. Patient noted to be resting with eyes closed remainder of shift. Offered Imitrex multiple times during shift, but patient refused stating, "I dont want to take that. It makes me nauseous and I'd rather be in pain than feel sick." No further c/o nausea or headache with rounding.
[2017-03-19] MEDS: Piperacillin-Tazo 3.375 Gm Inj 3.375 GM in Dextrose 5% Minibag Plus 50 ML IV SCH ×2 (03:51→12:30)
[2017-03-19 05:48] LABS: BASOPHILS % (AUTO) 0.3 % (0-3); EOSINOPHILS % (AUTO) 3.4 % (0-5); MONOCYTES % (AUTO) 8.1 % (4-12); Mean Corpuscular Hemoglobin 27.1 pg (27.0-35.0); Mean Corpuscular Volume 83.3 fL (81-100); NEUTROPHILS % (AUTO) 68.3 % (40-74); Platelet Count 197 bil/L (150-400)
[2017-03-19 06:25] VITALS: BP 157/74; PULSE 51; RESP 17; O2SAT 94
--- NOTE | 2017-03-19 08:24 | PCM.PNSURG ---
Subjective Date of Service: Mar 19, 2017 Date of Service: Mar 19, 2017 Visit Information: Reason for Visit Cholecystitis,Obstructive Hepatitis Surgery/Surgery Date LAP LIA AND GRAMS 03/16/17 Post-Op Day # 4 Laparoscopic cholecystectomy with + cholangiogram & ERCP completed Date of Admission: Mar 15, 2017 at 23:16 Hospital Day # Subjective: The patient had a headache and nausea with one episode of emesis after ambulation which resolved yesterday. She has no had her regular caffeine intake. She is now feeling better. No significant pain, nausea, vomiting, or bowel and is having loose bowel movements, flatus, hungry, ambulating independently, and voiding without difficulty. She is on a regular diet and would like to go home this afternoon if she can eat. Gastrointestinal: Good Appetite, No N/V, Passing Flatus, Passing Stool Pain Management: Good Pain Control, No or Minimal Pain Postop Activity: Ambulating Independently Objective Vital Sign- Last 8 Hours Date Time Temp Pulse Resp B/P Pulse Ox O2 Delivery O2 Flow Rate FiO2 03/19/17 06:25 36.5 51 17 157/74 94 Room Air Intake and Output- Last 8 Hour 03/19/17 Cumulative From/Thru 07:00 03/15/17 19:47 - 03/19/17 06:25 Intake Total 1754 ml 8444 ml Output Total 1430 ml 8040 ml Balance 324 ml 404 ml Intake Oral 1600 ml 3874 ml IV Total 154 ml 4570 ml Output Urine Total 1300 ml 7520 ml Emesis 100 ml 100 ml Drainage Total 30 ml 345 ml Estimated Blood Loss 75 ml # Bowel Movements 0 0 General: Alert, Oriented X3, Cooperative, No Acute Distress Lungs: Clear to Auscultation Heart: Exam Unremarkable Abdomen: Soft, Appropriately tender, Non-distended SURGICAL WOUND : Wound General Appearence: Steri Strips, Intact, No Erythema, No Discharge, No Inflammatory Changes Dressing & Drainage Status: Intact, Dressing Removed Wound Drainage Type: BEST Drain #1 (30 mL of serosanguineous fluid) Extremities: Thigh&Calf Soft/Nontender Neuro: Normal Speech Result Diagram: 03/19/17 0503/19/17 05 Assessment & Plan Impression This is a 62-year-old female postoperative day #3 status post laparoscopic cholecystectomy with positive cholangiogram & ERCP completed w/o complication. Patient was otherwise doing well tolerating general diet and exibiting normal signs of bowel function with no significant pain, or nausea, vomiting now. she had a headache and nausea with one episode of emesis after ambulation which resolved last night. Her pain is now improved with minimal management required. Her wounds look good, abdomen is appropriately tender and drain output is minimal serosanguineous drainage. She has a positive urinalysis for Citrobacter but is on sensitive antibiotics. Her white blood cell count this a.m. was 7.4 and bilirubin this morning was 1.2. However her AST/ALT was 624/ 1041 but is trending down this morning to 220/726 with a slightly elevated Alk Phos of 193. We will see if she can tolerate her general diet with possible discharge home this afternoon with Augmentin which was also sensitive for her UTI. Primary Diagnoses: 1. Acute cholecystitis 2. Status post laparoscopic cholecystectomy postoperative day # 2 with positive cholangiogram & ERCP completed yesterday 3. Choledocholithiasis with positive MRCP 4. UTI Other Medical and Surgical History Status post tubal ligation Hypertension Obesity Problems: Plan 1. Continue general diet as tolerated. 2. Encouraged supervised ambulatis. 3. Dc BEST today 4. Continue standard general surgery postoperative care protocols. 5. Possible discharge home this afternoon after reevaluation with PO Augmentin for GI and UTI. Cruz Adhikari PA-C Mar 19, 2017 08:24
[2017-03-19 08:49] VITALS: PULSE 52
[2017-03-19] MEDS ORDERED: HYDR-4003 PO (09:47)
[2017-03-19] MEDS ORDERED: AMOX-363 PO (09:50)
--- NOTE | 2017-03-19 10:29 | NUR ---
Home Meds Retrieved Home meds retrieved from pharmacy and returned unopened to patient and Al.
--- NOTE | 2017-03-19 12:02 | NUR ---
Social Work: Multi-Disciplinary Rounds Pt is a surgical pt and was discussed with store operations manager in rounds. No discharge needs identified. Per RN, pt is eager to go home. SW will continue to follow for needs. LEATHA Cuellar
--- NOTE | 2017-03-19 12:49 | PCM.DISURG ---
Surgical Discharge Instruction Date of Service Mar 19, 2017 Dates of Hospitalization Date of Hospital Admission Mar 15, 2017 at 23:16 Providers Admitting Physician: Nick Jerry MD Primary Care Physician: Torres Pang MD Attending Physician: Nick Jerry MD Discharge Diagnosis Discharge Diagnosis Primary Diagnoses: 1. Acute cholecystitis 2. Status post laparoscopic cholecystectomy 3. Choledocholithiasis 4. UTI Other Medical and Surgical History Status post tubal ligation Hypertension Obesity Post Operative diagnosis Primary Diagnoses: 1. Acute cholecystitis 2. Status post laparoscopic cholecystectomy 3. Choledocholithiasis 4. UTI Other Medical and Surgical History Status post tubal ligation Hypertension Obesity Diet Discharge Diet: No restrictions Activity Discharge Activity-General: Activity as pain allows, Activity as energy allows , No lifting >15 pounds for 2 weeks Dressing and Incisional Care Dressing Care: Allow Steri Stripes to fall off Hygiene: May shower, DO NOT soak incision under water Follow Up Plan Follow Up Plan Follow-up with Outpatient Physician [facility] Follow-up Provider (F9): Ajit Lynch PA-C Follow-up appointment: Weeks (2) Call your provider for: Fever, Chills, Shortness of breath, Increasing abdominal pain, Nausea, Vomiting, Wound redness, Increasing wound pain, Warmth to touch, Discharge @ incision, pus discharge Cruz Adhikari PA-C Mar 19, 2017 12:49
--- NOTE | 2017-03-19 12:59 | PCM.DC.SUR ---
Discharge Summary Date of Service: Mar 19, 2017 Date of Hospital Admission: Mar 15, 2017 at 23:16 Date of Operation(s): 03/16/2017 Date of Discharge: 03/19/2017 Diagnosis at Time of Discharge Primary Diagnoses: 1. Acute cholecystitis 2. Status post laparoscopic cholecystectomy & cholangiogram 3. Choledocholithiasis 4. UTI Other Medical and Surgical History Status post tubal ligation Hypertension Obesity Problems: Operation Status post laparoscopic cholecystectomy and cholangiogram Brief History and Physical: The patient presented to emergency department over the last weekend with an episode of abdominal pain that improved and then recurred over the previous 24 hours. She had been scheduled for a laparoscopic cholecystectomy at the [facility] but came back to our emergency department last night after taking three ibuprofens, hydrocodone but no Tylenol. She denies jaundice, tea-colored urine or acholic stools. Hospital Course: The patient was admitted with a history, presentation, and workup consistent with acute cholecystitis and underwent the above-mentioned operation without complication including positive cholangiogram study diagnostic choledocholithiasis. See operative report for details of the procedure. On postoperative day #1 the patient underwent an endoscopic retrograde cholangiopancreaticography for treatment of choledocholithiasis performed by Carpet Installer Dr. Dave Huynh MD. The patient tolerated the procedure well. See procedural report for details. The patient was stable for discharge on postoperative day #3. At the time of discharge the patient was voiding normally, her surgical drain was appropriately removed, she was having bowel movements, tolerating a general diet without nausea or vomiting, and her pain was controlled with minimal oral analgesics, ambulating without assistance, with clean, dry, and intact surgical wounds without signs of significant infection, inflammation, and/or hematoma. We also discussed in detail and the patient verbalized understanding instructions regarding her postoperative care and medication use; outpatient follow-up, and went to seek immediate medical attention. She was given prescriptions for postoperative analgesics, anti- constipation medications, and sensitive antibiotics for urinary tract infection indicated by positive urinalysis and urine culture. Pathology: See pathology report Disposition: Home in stable condition per [facility] General Surgeon Dr. Titus Guido M.D. Follow-up Plan: 1. Follow-up in physician [facility] in 2 weeks. 2. Follow-up with Primary Care Provider as needed for persistent abnormal urination. Amoxicillin/Clav K 500-125 mg (Augmentin 500-125 mg) 1 Each Tablet 1 TABLET PO BID Frovatriptan Succinate (Frova) 2.5 Mg Tablet 2.5 MG PO DIRECTED PRN PRN For Headache (Reported) Hydrocodone-Acetaminophen 5-325 mg (Hydrocodone-Acetaminophen 5-325 mg) 1 Each Tablet 1 TABLET PO Q4H PRN PRN For Pain Hydrocodone-Acetaminophen 5-325 mg (Hydrocodone-Acetaminophen 5-325 mg) 1 Each Tablet 1 TABLET PO TID PRN PRN For Severe Pain Ibuprofen (Ibuprofen) 200 Mg Capsule 200 MG PO DIRECTED PRN PRN For Pain ( Reported) Ondansetron ODT (Zofran ODT) 4 Mg Tablet 4 MG PO Q4H PRN PRN For Nausea Propranolol HCl (Propranolol HCl) 40 Mg Tablet 40 MG PO BID (Reported) Discharge Medications: See medication list for details regarding [place] & Augmentin discharge medications. copies to: Torres Pang MD, Scott PA-C Mar 19, 2017 12:59
--- NOTE | 2017-03-19 14:59 | PCM.PNMED ---
Subjective Date of Service Mar 19, 2017 Subjective Patient had headache overnight with administration of oxycodone and 100 mL emesis approximately half hour later Today she is back to herself. She is not nauseous, has had no more vomiting, pain is well controlled. Exam Vital Signs Vital Sign - Last Date Time Temp Pulse Resp B/P Pulse Ox O2 Delivery O2 Flow Rate FiO2 03/19/17 08:49 52 03/19/17 06:25 36.5 17 157/74 94 Room Air 03/17/17 19:20 2 Intake and Output 03/18/17 03/18/17 03/19/17 Cumulative From/Thru 15:00 23:00 07:00 03/15/17 19:47 - 03/19/17 06:25 Intake Total 320 ml 1662 ml 1754 ml 8444 ml Output Total 430 ml 2850 ml 1430 ml 8040 ml Balance -110 ml -1188 ml 324 ml 404 ml Intake Oral 200 ml 1400 ml 1600 ml 3874 ml IV Total 120 ml 262 ml 154 ml 4570 ml Output Urine Total 400 ml 2800 ml 1300 ml 7520 ml Emesis 100 ml 100 ml Drainage Total 30 ml 50 ml 30 ml 345 ml Estimated Blood Loss 75 ml # Bowel Movements 0 0 0 Exam General: No acute distress, well-developed, well-nourished, appropriately interactive HEENT: Normocephalic, atraumatic. External ears without defect. Pupils equal, round, and reactive to light. Oropharynx free of erythema moist mucosa. Neck: Supple with full range of motion. No lymphadenopathy or thyromegaly. Cardiovascular: Regular rate and rhythm with no murmurs, rubs, or gallops appreciated Pulmonary: Clear to auscultation bilaterally with no crackles, wheezes, or rhonchi. Normal respiratory effort with no use of accessory muscles. Abdomen: Bowel tones present. Soft, appropriately, mildly distended. No hepatosplenomegaly or masses appreciated. Clean dressing over removed BEST drain site. Extremities: No clubbing, cyanosis, edema, or lymphadenopathy appreciated. Skin: Normal temperature, turgor, and texture; no rash, ulcers, or subcutaneous nodules appreciated. Neurological: Cranial nerves grossly intact. No known gait impairment. Psychiatric: Normal mood and affect. Alert and oriented to person, place, and time. Lab and Diagnostics Result Diagram: 03/19/1752803/19/17528 Microbiology Urine culture shows pansensitive Citrobacter Koseri which is normal derek of the digestive tract, she has 6-10 white blood cells, and no urinary symptoms Assessment & Plan 62-year-old woman day 2 status post ERCP and day 3 status post cholecystectomy. Patient continues to have downtrending yet elevated liver enzymes. Patient tolerating oral intake. She is recovering well. Patient okay to discharge home from a GI standpoint. Pain Evaluation: Adequate Pain Control VTE Mechanical Devices: Intermittant Pneumatic CD Attending Statement No charge note. Patient was d/c'd home prior to my ability to personally visit at bedside. Juliane Muñoz DO Mar 19, 2017 09:08 Dave Huynh MD Mar 19, 2017 19:29
--- NOTE | 2017-03-19 16:53 | NUR ---
Discharge Pt discharged at 1315 in w/c to private vehicle with . Steri-strips in place on lap sites and gauze with bio-occlusive over BEST site that was removed. Pt VSS, GUERRERO, A&O x 3, no c/o pain. Pt was able to shower, eat lunch and walk in hallways w/o nausea or BOLTON. Pt has care notes, discharge instructions and rx's. All questions answered and has all belongings.
== END 2017-03-19 15:15 | disposition home or self-care (01) | DRG 418 ==
LOC: SED 19:44 → OSC 23:16 → OBSVTOIN 23:16
PROVIDERS: ADMIT Surgery; ATTEND Surgery
PROC: BF131ZZ Fluoroscopy of Gallbladder and Bile Ducts using Low Osmolar Contrast (ICD-10-PCS; 2017-03-16)
PROC: 0FT44ZZ Resection of Gallbladder, Percutaneous Endoscopic Approach (ICD-10-PCS; principal; 2017-03-16 10:00)
PROC: 0FCC8ZZ Extirpation of Matter from Ampulla of Vater, Via Natural or Artificial Opening Endoscopic (ICD-10-PCS; 2017-03-17)
PROC: 0F798ZZ Dilation of Common Bile Duct, Via Natural or Artificial Opening Endoscopic (ICD-10-PCS; 2017-03-17)
DX: K80.43 Calculus of bile duct with acute cholecystitis with obstruction (principal); N39.0 Urinary tract infection, site not specified; I10 Essential (primary) hypertension; E66.9 Obesity, unspecified; B96.89 Other specified bacterial agents as the cause of diseases classified elsewhere; Z68.36 Body mass index [BMI] 36.0-36.9, adult